=== PATIENT | male | born 1985 | race Two or more races ===

== ENCOUNTER 2024-06-21 12:45 | Emergency (ER) | payer BC, OTHER ==
[~2024-06-21] VITALS: Ht 165.1 cm; Wt 67.2 kg
--- NOTE | 2024-06-21 12:58 | ED.PDOC ---
Musculoskeletal HPI Comments HPI: VITALS: Temp: BP: HR: RR: SPO2: Past medical history: Past surgical history: Time Seen by MD: 12:50 Reviewed Notes: Nurses Notes, Medications, Allergies Allergies: Coded Allergies: NO KNOWN ALLERGIES (Unverified , 06/21/24) Information Source: Patient Mode of Arrival: Ambulatory Was a procedure done? Was a procedure done?: No X-Ray, Labs, Meds, VS Vital Signs Date Time Temp Pulse Resp B/P (MAP) Pulse Ox O2 Delivery O2 Flow Rate FiO2 06/21/24 14:29 98.0 54 16 116/78 (91) 100 98.0 06/21/24 14:29 54 16 100 Room Air 06/21/24 13:00 98.0 54 16 116/78 (91) 100 98.0 Time of 1ST Reevaluation: 13:20 Reevaluation 1ST: Unchanged Patient Education/Counseling: Diagnosis, Treatment Family Education/Counseling: Other Comments Patient presented with the above HPI.-- ---workup was initiated. patient was found with the above mentioned diagnosis. the following medications were ordered: the following tests were ordered: Labs, chest x-ray, EKG, UA Patient ED course and VS have been stabilized. Patient has been reassessed in the ED and remained in a stable condition. Pertinent incidental findings were discussed with the patient and/or family. Patient/family voices understanding and is agreeable with plan. Patient has been observed in the ED adequate length of time to insure improvement/stability. Escalation of care considered: Consideration of escalation to observation or admission Patient was ADMITTED to the medicine team for further evaluation and treatment of their presentation. Patient was DISCHARGED home in a stable condition. All the reports of any imaging studies that were ordered by myself were reviewed by myself. Heart Score Heart Score: Heart Score Response (Comments) Value History N/A 0 EKG N/A 0 Age N/A 0 Risk Factors N/A 0 Troponin N/A 0 Total 0 I personally scribed for ADRIANA LOGAN DO ([email or web address]) on 06/21/24 at 12:58. Electronically submitted by Meghann Radford ([email or web address]). I personally scribed for ADRIANA LOGAN DO ([email or web address]) on 06/21/24 at 14:45. Electronically submitted by Meghann Radford ([email or web address]). ADRIANA LOGAN DO Jun 21, 2024 12:58
--- NOTE | 2024-06-21 13:57 | DVH ---
CLINICAL INDICATION: TWISTING INJURY TECHNIQUE: 3 radiographic views of the left knee were obtained. Comparison: None FINDINGS/IMPRESSION: There is no evidence of acute fracture or dislocation. Severe tricompartmental degenerative changes of the knee. Small suprapatellar effusion.
[2024-06-21 14:29] VITALS: BP 116/78; PULSE 54; RESP 16; TEMP 98; O2SAT 100
[2024-06-21] MEDS ORDERED: MELO7.5T7 PO (15:01)
--- NOTE | 2024-06-21 15:02 | ED.PDOC ---
Musculoskeletal HPI Comments Pleasant 38-year-old gentleman presents for atraumatic left knee pain x2 days. Pain rated as moderate Able to bear weight on the leg Denies trauma to the knee or recent fall Denies skin color changes around the knee Denies masses around the knee Denies popping/locking/giving out of the knee Denies fever chills night sweats nausea vomiting Denies previous surgeries to the knee nor significant injury Chief Complaint: Lower Extremity Time Seen by MD: 13:36 Primary Care Provider: NONE Reviewed Notes: Nurses Notes, Medications, Allergies Allergies: Coded Allergies: NO KNOWN ALLERGIES (Unverified , 06/21/24) Home Meds Active Scripts Meloxicam (Meloxicam) 7.5 Mg Tab, 1 TAB PO DAILY for 30 Days, #30 TAB 0 Refills Prov:FREDAARVIND HERMOSILLO Joseph DIAZ 06/21/24 Information Source: Patient Mode of Arrival: Ambulatory Past Medical History PAST MEDICAL HISTORY: Denies Family History Family History: Reviewed,noncontributory to illness Social History Smoker: Non-Smoker Alcohol: Denies ETOH Use Drugs: Denies Drug Use All Other Systems: Reviewed and Negative (Per HPI) Physical Exam General Appearance: No Apparent Distress, Normal HEENT: Normal ENT Inspection, Pharynx Normal, TMs Normal Neck: Full Range of Motion, Non-Tender, Normal, Normal Inspection Respiratory: Chest Non-Tender, Lungs Clear, No Accessory Muscle Use, No Respiratory Distress, Normal Breath Sounds Cardiovascular: No Edema, No JVD, No Murmur, No Gallop, Regular Rate/Rhythm Breast Exam: Deferred Gastrointestinal: No Organomegaly, Non Tender, No Pulsatile Mass, Normal Bowel Sounds, Soft Genitalia: Deferred Pelvic: Deferred Rectal: Deferred Extremities: No calf tenderness, Normal capillary refill, Normal inspection, Normal range of motion, Non-tender, No pedal edema Musculoskeletal : Location: Left Extremity Location: Knee (No gross abnormality on inspection. Pain with flexion-extension. No crepitus) Apperance: Normal Neurologic: Alert, No Motor Deficits, Normal Affect, Normal Mood, No Sensory Deficits Cerebellar Function: Normal Reflexes: Normal Skin: Dry, Normal Color, Warm Lymphatic: No Adenopathy Was a procedure done? Was a procedure done?: No Differential Diagnosis EXT Differential Diagnosis: Sprain, Arthritis X-Ray, Labs, Meds, VS Vital Signs Date Time Temp Pulse Resp B/P (MAP) Pulse Ox O2 Delivery O2 Flow Rate FiO2 06/21/24 14:29 98.0 54 16 116/78 (91) 100 98.0 06/21/24 14:29 54 16 100 Room Air 06/21/24 13:00 98.0 54 16 116/78 (91) 100 98.0 PATIENT: LEE HUIZARCCT: [id number]: [id number] : 1985 LOC: ER ROOM / BED: / AGE / SEX: 38 / M ADM STATUS: REG ER SERVICE 1306 ORDERING PHYSICIAN: ARVIND BARBA [employer]W OPERATOR PROCEDURE(s): LKNE3 - L KNEE 3V XRAY REASON: TWISTING INJURY ORDER NUMBER(s): [id number], ACCESSION NUMBER(s): [id number] CLINICAL INDICATION: TWISTING INJURY TECHNIQUE: 3 radiographic views of the left knee were obtained. Comparison: None FINDINGS/IMPRESSION: There is no evidence of acute fracture or dislocation. Severe tricompartmental degenerative changes of the knee. Small suprapatellar effusion. ATED BY: RENATA PALACIO DO DICTATED DATE/TIME: 06/21/24 135 SIGNED BY: RENATA PALACIO DO SIGNED DATE/TIME: 06/21/24 135 CC: X-Ray, Labs, Meds, VS Comment Prescribed NSAIDs for the management of acute knee pain. Take medicine with food as needed Recommend light walking under the sun for 30 minutes a day Avoiding running jogging high-impact activities Stretch as tolerated Ice 3x/day for 5 minutes Wear knee brace for stability as needed, elevate leg swelling aggravated Patient is stable for discharge at this time. External notes reviewed. Test results and diagnostic imaging interpreted. All diagnostic findings, discharge care, education and instructions provided Follow-up with PCP in 2 to 3 days Patient verbalized understanding and agreed to treatment plan Vital signs stable, afebrile, no acute distress noted Patient ambulatory with strong steady gait Advised to return precautions for any new or worsening symptoms, return to ER immediately for re-evaluation Patient is aware that the purpose of this visit was for an acute medical emergency requiring emergent stabilization. Chronic conditions, including malignancies have not been ruled out. Patient is instructed to follow up with PCP as directed and discharge instructions for continued care and workup. If unable to arrange follow-up, patient is to return to the emergency department for reassessment. Patient (parent or legal guardian if applicable) was given verbal and written discharge instructions and acknowledges understanding. Time of 1ST Reevaluation: 13:20 Reevaluation 1ST: Improved Patient Education/Counseling: Diagnosis, Treatment Family Education/Counseling: Diagnosis, Treatment Departure 1 Departure Time of Disposition: 13:20 Impression: Primary Impression: Left knee pain Qualified Codes: M25.562 - Pain in left knee Additional Impression: Tricompartment osteoarthritis of left knee Disposition: HOME / SELF CARE / HOMELESS Condition: Stable e-Prescriptions Meloxicam (Meloxicam) 7.5 Mg Tab 1 TAB PO DAILY for 30 Days, #30 TAB 0 Refills Prov: ARVIND BARBA NP 06/21/24 Critical Care Note Critical Care Time?: No Stability Stability form required: No Heart Score Heart Score: Heart Score Response (Comments) Value History N/A 0 EKG N/A 0 Age N/A 0 Risk Factors N/A 0 Troponin N/A 0 Total 0 ARVIND BARBA NP Jun 21, 2024 15:02
== END 2024-06-21 15:11 | disposition home or self-care (01) ==
LOC: ER 12:45
DX: M17.12 Unilateral primary osteoarthritis, left knee (principal)
CPT/HCPCS: 23650; 73562